=== PATIENT | female | born 2000 | race Caucasian/White ===

== ENCOUNTER → 2021-05-11 10:34 | Outpatient (BNVA) | payer OTHER, SELFPAY | PROVIDERS: Visit Provider Nurse Practitioner Family | DX: Z20.822 Contact with and (suspected) exposure to COVID-19 (principal) | CPT/HCPCS: 87635 ==

== ENCOUNTER 2021-05-18 10:26 | Outpatient (CLI) | payer OTHER, SELFPAY ==
[2021-05-18 11:36] LABS: Basophils % 0.2 %; Eosinophils # 0.1 10^3/uL (0.0-0.8); Eosinophils % 1.2 %; Hematocrit 39.7 % (37.0-47.0); Hemoglobin 13.2 g/dL (11.5-15.3); Lymphocytes # 3.2 10^3/uL (1.5-6.5); Lymphocytes % 32.3 %; Mean Corpuscular HGB Conc 33.2 g/dL (30.0-36.0); Mean Corpuscular Hemoglobin 30.4 pg (28.0-34.0); Mean Corpuscular Volume 91.5 fl (81-99); Mean Platelet Volume 10.1 fL (7.4-10.4); Monocytes # 0.5 10^3/uL (0.2-0.9); Monocytes % 4.5 %; Neutrophils # 6.09 10^3/uL (1.8-8.0); Neutrophils % 61.5 %; Nucleated Red Blood Cells % 0 %; Platelet Count 344 10^3/cmm (130-400); Red Blood Count 4.34 10^6/uL (4.1-5.3); Red Cell Distribution Width 12.2 % (12.1-15.1); White Blood Count 9.9 10^3/uL (4.5-13.0)
[2021-05-18 11:51] LABS: Estmated Average Glucose 94; Hemoglobin A1C 4.9 % (4.0-6.0)
[2021-05-18 12:11] LABS: Alanine Aminotransferase 56 U/L (0-33); Albumin Level 4.4 g/dL (3.5-5.2); Alkaline Phosphatase 99 IU/L (35-105); Anion Gap 15.9 (5-19); Aspartate Amino Transferase 23 U/L (0-32); Blood Urea Nitrogen 10 mg/dL (6-20); Calcium 9.6 mg/dL (8.5-10.5); Carbon Dioxide 25 mmol/L (22-29); Chloride 104 mmol/L (98-107); Chol HDL Ratio 5.15 mg/dL (0.0-4.40); Cholesterol 211 mg/dL (0-200); Free T4 Free Thyroxine 1.28 ng/dL (0.82-1.77); Globulin 3.3 g/dL (1.3-4.6); Glomerular Filtration Rate 127.5 mL/min (90-130); Glucose 77 mg/dL (65-115); HDL Cholesterol 41 mg/dL (60-100); LDL Cholesterol Calculated 139 mg/dL (50-129); LDL HDL Ratio 3.39 RATIO (0.00-3.22); Osmolality Calculated 290 mOsm/kg (285-295); Potassium 3.9 mmol/L (3.5-5.1); Sodium 141 mmol/L (136-145); T3 Free 3.4 PG/ML (2.0-4.4); Testosterone Total 57.9 ng/dL (11.2-31.1); Thyroid Stimulating Hormone 2.15 uIU/mL (0.27-4.20); Total Bilirubin 0.4 mg/dL (0.15-1.2); Total Protein 7.7 g/dL (6.6-8.7); Triglycerides 153 mg/dL (0-150)
[2021-05-18 12:49] LABS: Follicle Stimulating Hormone 7.5 mIU/mL; Iron 96 ug/dL (37-145); Luteinizing Hormone 19.9 mIU/mL (0.5-41.7); Percent Saturation 38.2 % (20-50); Prolactin 13.74 ng/mL (4.8-23.3); Total Iron Binding Capacity 251 mcg/dl; Unsaturated Iron Binding 155 ug/dL (112-347); Vitamin B12 482 pg/mL (232-1245)
[2021-05-22 09:42] LABS: Testosterone, Free 2.1 pg/mL (0.2-5.0)
== END 2021-05-18 10:27 | disposition home or self-care (01) ==
LOC: LAB 10:39
PROVIDERS: Visit Provider Nurse Practitioner Family
DX: E65 Localized adiposity (principal); L68.0 Hirsutism; N91.2 Amenorrhea, unspecified; N92.6 Irregular menstruation, unspecified; R53.83 Other fatigue; R68.89 Other general symptoms and signs
CPT/HCPCS: 80053; 80061; 82607; 83001; 83002; 83036; 83498; 83540; 83550; 84146; 84402; 84403; 84439; 84443; 84481; 85025

== ENCOUNTER 2021-06-28 08:12 | Outpatient (CLI) | payer OTHER, SELFPAY ==
--- NOTE | 2021-06-28 08:30 | US_ITS ---
WS: [id number] RIGHT UPPER QUADRANT ULTRASOUND HISTORY: R74.01 - Elevation of levels of liver transaminase levels COMPARISON: None available. Liver: 18.6 cm in length. There is very mildly enlarged. No mass or bile duct dilatation. Mild hepati c steatosis. Portal Vein: Normal hepatopetal flow with monophasic waveform. Gallbladder: Normally distended gallbladder with no stones or wall thickening. CBD: 0.3 cm Pancreas: Head and body are normal. Tail is obscured by bowel gas. Right kidney: 11.7 cm in length. Normal size and echogenicity. No hydronephrosis or mass. Aorta and IVC: Unremarkable abdominal aorta and IVC. No ascites. US/US liver [id number] IMPRESSION: 1. Normal gallbladder. 2. Mild hepatic steatosis and hepatomegaly. 3. Normal portal vein.
== END 2021-06-28 08:13 | disposition home or self-care (01) ==
PROVIDERS: PCP Nurse Practitioner Family; Visit Provider Nurse Practitioner Family
DX: R74.01 Elevation of levels of liver transaminase levels (principal); K76.0 Fatty (change of) liver, not elsewhere classified; R16.0 Hepatomegaly, not elsewhere classified
CPT/HCPCS: 76705